=== PATIENT | female | born 1965 | race African-American/Black ===

== ENCOUNTER 2020-11-28 15:40 | Emergency (ER) | payer BC, SELFPAY ==
--- NOTE | ~2020-11-28 | XR_ITS ---
EXAMINATION: XR hip RT 2V w AP pelvis DATE: 11/28/2020 16:11 INDICATION: Fall with right hip pain TECHNIQUE: Anteroposterior view of the pelvis and anteroposterior and frog-leg lateral views of the r ight hip were obtained. COMPARISON: None. FINDINGS: Alignment is normal. No fracture. Bilateral hip joint spaces appear relatively preserved. Small heter otopic ossicle near the cephalad tip of the right greater trochanter. Moderate lower lumbar spondylos is. A few phleboliths in the pelvis. IMPRESSION: 1. No acute osseous abnormality. Reviewed, dictated and finalized at location A.
--- NOTE | ~2020-11-28 | CT_ITS ---
EXAMINATION: CT lumbar spine wo con DATE: 11/28/2020 17:53 INDICATION: Low back pain post fall TECHNIQUE: Computed tomography (CT) of the lumbar spine was performed without intravenous contrast. A utomated exposure control and iterative reconstruction technique were employed. The dose-length produ ct was 1240.63 mGy-cm. COMPARISON: None FINDINGS: Mild lumbar dextrocurvature. Sagittal alignment is normal. Vertebral body heights are normal. No frac tures or pars intra-articular is defects. Severe disc height loss with vacuum phenomena at L3-L4 and L4-L5. Bilateral sacroiliitis, mild on the right and moderate on the left which could be either infla mmatory or degenerative in etiology. 5.8 cm left ovarian cyst. The following disc levels are specific ally discussed: T11-T12: There is mild bilateral facet joint osteoarthritis. There is no neural foraminal stenosis. T here is no central canal stenosis. T12-L1: There is mild right and moderate left facet joint osteoarthritis. There is no neural foramina l stenosis. There is no central canal stenosis. L1-L2: There is mild bilateral facet joint osteoarthritis. There is no neural foraminal stenosis. The re is no central canal stenosis. L2-L3: There is mild left and moderate right facet joint osteoarthritis. There is no neural foraminal stenosis. There is no central canal stenosis. L3-L4: Disc is bulging. There is mild hypertrophy of the ligamentum flavum. There is moderate bilater al facet joint osteoarthritis. There is moderate bilateral neural foraminal stenosis. There is modera te to severe central canal stenosis. L4-L5: Disc is bulging. There is mild hypertrophy of the ligamentum flavum. There is moderate left a nd moderate to severe right facet joint osteoarthritis. There is moderate bilateral neural foraminal stenosis. There is severe central canal stenosis. L5-S1: Disc is bulging. There is moderate to severe bilateral facet joint osteoarthritis. There is mi ld bilateral neural foraminal stenosis. There is mild central canal stenosis. IMPRESSION: 1. Severe lower lumbar spondylosis. No acute osseous abnormality. 2. 5.8 cm left ovarian cyst. Reviewed, dictated and finalized at location A.
--- NOTE | ~2020-11-28 | XR_ITS ---
EXAMINATION: XR foot RT min 3V DATE: 11/28/2020 16:11 INDICATION: Right foot pain post fall TECHNIQUE: Dorsoplantar, two oblique and lateral views of the right foot were obtained. COMPARISON: None. FINDINGS: Hallux valgus. No fracture. Mild polyarticular osteoarthritis at a few tarsal metatarsal and interpha langeal joints. Small Achilles and plantar calcaneal spurs with additional small enthesophyte at the lateral malleolus. IMPRESSION: 1. Mild degenerative skeletal changes in the right foot. No acute osseous abnormality. Reviewed, dictated and finalized at location A. IMPRESSION: 1. Mild degenerative skeletal changes in the right foot. No acute osseous abnor mality.
[2020-11-28 15:42] VITALS: BP 191/93; PULSE 72; RESP 18; TEMP 36.6; O2SAT 100
[2020-11-28] MEDS: HYDROcodone/acetaminophen (*CRX) 5-325 MG TABLET 1 TAB PO (17:46)
--- NOTE | 2020-11-28 18:17 | ED.GENADULT ---
HPI - General Adult General Chief complaint: Extremity Injury, Lower Stated complaint: RIGHT LEG INJURY Time Seen by Provider: 11/28/20 16:57 Source: patient and RN notes reviewed Mode of arrival: ambulatory Limitations: no limitations History of Present Illness HPI narrative: Patient is 54 years old -[place] Citizen female somehow missed a step and fell landed on her bottom on October 17, 2020, was complaining of right foot right ankle pain at that time, repeated x-ray showed no fracture. 5 to 7 days later started having pain at the right buttock going all the way down to her toes with tingling and numbness. patient denies bowel dysfunction, bladder dysfunction, altered sensation, focal weakness, or saddle numbness,. Patient been taking ibuprofen without any improvement. Patient been using a walker/cane since. Related Data Allergies Allergy/AdvReac Type Severity Reaction Status Date / Time No Known Allergies Allergy Verified 11/28/20 16:50 Review of Systems Review of Systems: CONSTITUTIONAL: Denies fever, chills, or sweats. EYES: Denies visual changes, redness, or discharge. ENT: Denies rhinorrhea, congestion, sore throat, or otalgia. CARDIOVASCULAR: Denies chest pain, palpitations, or edema. RESPIRATORY: Denies cough or dyspnea. GASTROINTESTINAL: Denies abdominal pain, nausea, vomiting, or diarrhea. GENITOURINARY: Denies dysuria or hematuria. SKIN: Denies rash or itching. MUSCULOSKELETAL: Right buttock pain NEUROLOGIC: Denies headache, numbness, or weakness. PSYCHIATRIC: Denies anxiety or depression. [facility] Family History Family History Father Family history of malignant neoplasm Mother Family history of coronary artery disease, Onset Age: 56 Sibling Patient's sister is in good health Patient's brother is in good health Patient's brother is Social History Social History Smoking status: Current every day smoker Alcohol intake: current Gender identity (if verbalized by the patient): Female Exam Narrative: General appearance: Well-developed, well-nourished Skin: Normal color Head: Normocephalic, nontraumatic Eyes: Clear conjunctiva ENT: Oropharynx normal, ears normal, nose normal Neck: Supple, nontender Chest and respiratory: Airway patent, no respiratory distress, no accessory muscle use Heart: Regular rate/rhythm Abdomen: Soft, nontender, no organomegaly, quiet bowel sounds Vascular: Normal peripheral pulses, normal capillary refill. Musculoskeletal: Normal range of motion, mild tenderness at the center of her right buttock, no bruises, no swelling. Neurologic: Alert and oriented ?3, [employer] is normal as tested, no gross motor deficit, positive right leg raising test Course Course Emergency Course: Stable, improving Vital Signs Vital signs: Vital Signs Temperature 36.6 C 11/28/20 15:42 Pulse Rate 72 11/28/20 15:42 Respiratory Rate 18 11/28/20 15:42 Blood Pressure 191/93 H 11/28/20 15:42 Pulse Oximetry 100 11/28/20 15:42 Temperature 36.6 C 11/28/20 15:42 Pulse Rate 72 11/28/20 15:42 Respiratory Rate 18 11/28/20 15:42 Blood Pressure 191/93 H 11/28/20 15:42 Pulse Oximetry 100 11/28/20 15:42 Medical Decision Making [facility] Narrative Medical decision making narrative: Lumbar radiculopathy is my concern Differential Diagnosis Differential Diagnosis: Lumbar radiculopathy, musculoskeletal Vital Signs Vital Signs: Vital Signs Temperature 36.6 C 11/28/20 15:42 Pulse Rate 72 11/28/20 15:42 Respiratory Rate 18 11/28/20 15:42 Blood Pressure 191/93 H
[2020-11-28 18:57] VITALS: BP 182/88; PULSE 80; RESP 20; O2SAT 99
== END 2020-11-28 18:58 | disposition home or self-care (01) ==
PROVIDERS: Emergency Provider Emergency Medicine; PCP Internal Medicine
DX: M54.16 Radiculopathy, lumbar region (principal); M79.671 Pain in right foot; M25.571 Pain in right ankle and joints of right foot; F17.200 Nicotine dependence, unspecified, uncomplicated; W10.9XXA Fall (on) (from) unspecified stairs and steps, initial encounter
CPT/HCPCS: 72131; 73502; 73630; 96372; 99284; A9270; J1100

== ENCOUNTER 2022-02-20 15:15 | Outpatient (CLI) | payer BC, SELFPAY ==
[2022-02-20 16:00] LABS: Anion Gap 15 mmol/L (8-16); Blood Urea Nitrogen 12 mg/dL (7-17); Calcium 9.4 mg/dL (8.4-10.2); Carbon Dioxide 29 mmol/L (22-30); Chloride 99 mmol/L (98-107); Estimated Glomerular Filt Rate > 60; Glucose 86 mg/dL (65-110); Potassium 3.1 mmol/L (3.4-5.0); Sodium 143 mmol/L (137-145)
== END 2022-02-20 15:16 | disposition home or self-care (01) ==
LOC: ANHLAB 15:17
PROVIDERS: PCP Internal Medicine; Visit Provider Internal Medicine
DX: I89.0 Lymphedema, not elsewhere classified (principal); I10 Essential (primary) hypertension
CPT/HCPCS: 36415; 80048

== ENCOUNTER 2022-04-14 13:12 | Outpatient (CLI) | payer BC, SELFPAY ==
--- NOTE | 2022-04-18 13:02 | WPDPFTINT ---
PFT Procedure Performed PFT Procedure Performed Spirometry with Pre/Post Bronchodilator Plethysmography (Lung Vol) Diffusing Cap (DLCO) Flow Vol Loop PFT Interpretation Lung volumes were measured with the body plethysmography method. The severely reduced expiratory reserve volume could be due to obesity. The remaining lung volumes are unremarkable. Spirometry showed normal expiratory flow rates and a normal FEV1 to FVC ratio 76%. Following administration of a bronchodilator there was no significant increase in expiratory flow rates. Lung diffusion capacity is moderately reduced at 55% predicted. The flow-volume loop is unremarkable. Impression Impression: Spirometry and lung volumes within the normal range. Moderately reduced lung diffusion capacity.
--- NOTE | 2022-04-18 13:04 | WPDSIXMINUTE ---
Six Minute Walk Procedure Procedure Performed Pulmonary Stress Test (6 min walk) Six Minute Walk Six Minute Walk: This 6-minute walk test was carried out with the patient breathing ambient air. The pre-walk oxyhemoglobin saturation was 99%. The patient walked 335 m with no stops during testing. During the walk the oxyhemoglobin saturation remained in the range of 96%-99%. Impression: No evidence of oxyhemoglobin desaturation on this testing.
== END 2022-04-14 13:13 | disposition home or self-care (01) ==
LOC: ANHPFT 13:13
PROVIDERS: PCP Internal Medicine; Visit Provider Internal Medicine Pulmonary Disease
DX: R06.00 Dyspnea, unspecified (principal); J40 Bronchitis, not specified as acute or chronic; Z72.0 Tobacco use
CPT/HCPCS: 94060; 94618; 94726; 94729

== ENCOUNTER 2022-04-21 11:37 | Outpatient (CLI) | payer BC, SELFPAY ==
[2022-04-21 12:09] LABS: Alanine Aminotransferase 26 U/L (6-35); Albumin Level 4.6 g/dL (3.5-5.1); Alkaline Phosphatase 147 U/L (38-126); Anion Gap 7 mmol/L (8-16); Aspartate Amino Transferase 30 U/L (14-36); Bilirubin,Total 0.8 mg/dL (0.2-1.3); Blood Urea Nitrogen 23 mg/dL (7-17); Calcium 9.6 mg/dL (8.4-10.2); Carbon Dioxide 27 mmol/L (22-30); Chloride 105 mmol/L (98-107); Cholesterol 195 mg/dL (0-200); Estimated Glomerular Filt Rate > 60; Glucose 93 mg/dL (65-110); HDL Direct 61 mg/dL; Potassium 3.9 mmol/L (3.4-5.0); Sodium 139 mmol/L (137-145); Triglycerides 115 mg/dL (<150)
[2022-04-21 12:20] LABS: LDL Cholesterol Direct 66 mg/dL
[2022-04-21 13:09] LABS: Vitamin D 25 Hydroxy 26.4 ng/mL
== END 2022-04-21 11:38 | disposition home or self-care (01) ==
LOC: ANHLAB 11:39
PROVIDERS: PCP Internal Medicine; Visit Provider Nurse Practitioner
DX: E78.5 Hyperlipidemia, unspecified (principal); E55.9 Vitamin D deficiency, unspecified
CPT/HCPCS: 36415; 80053; 80061; 82306

== ENCOUNTER 2022-07-11 12:59 | Outpatient (CLI) | payer BC, SELFPAY ==
--- NOTE | 2022-07-11 | ECHO_ITS ---
Patient Info Name: Selam Rosario Age: 56 years : 1965 Gender: Female Ht: 65 in Wt: 175 lbs BSA: 1.93 m2 HR: 78 bpm BP: 135 / 85 mmHg Heart Rhythm: Sinus Rhythm Technical Quality: Good Exam Date: 07/11/2022 1:10 PM Exam Location: [facility] Patient Status: Outpatient Admit Date: 07/11/2022 Staff Ordering Physician: Yoandy Machuca MD Manufacturing Controller: Tiffanie Tapia RDCS Attending Provider: Yoandy Machuca MD Referring Physician: Sven LERNER; Exam Type: CA echo doppler color flow Study Info Indications I27.20 - PULMONARY HYPERTENSION I36.1 - Nonrheumatic tricuspid (valve) insufficiency I35.1 - Nonrheumatic aortic (valve) insufficiency I34.0 - Nonrheumatic mitral (valve) insufficiency I10 - Essential (primary) hypertension Complete two-dimensional, color flow and Doppler transthoracic echocardiogram is performed. Summary 1. Complete two-dimensional, color flow and Doppler transthoracic echocardiogram is performed. 2. Left atrial chamber dimension is moderately enlarged. 3. Right atrial chamber dimension is mildly enlarged. 4. Normal left ventricular size and thickness with good contractility of all segments. Ejection fraction 60-65%. Grade 2 diastolic dysfunction is noted. 5. There is moderate eccentric aortic valve regurgitation. Trileaflet valve. 6. There is mild tricuspid valve regurgitation. 7. Mild pulmonary hypertension, estimated pulmonary arterial systolic pressure is 46 mmHg. 8. There is trivial pericardial effusion. 9. Mildly dilated inferior vena cava. 10. Minimally dilated sinus of Valsalva and ascending aorta, 3.3 cm. 11. Normal sinus rhythm. Left Ventricle Left ventricular chamber dimension is normal. Left ventricular systolic function is normal, estimated at 60-65%. There is no increased left ventricular wall thickness. Left ventricular septal wall motion is normal. The left ventricular diastolic function is grade II diastolic dysfunction. Global longitudinal strain is normal at -18 %. Right Ventricle Right ventricular chamber dimension is normal. Right ventricular systolic function is normal. Left Atria Left atrial chamber dimension is moderately enlarged. Right Atria Right atrial chamber dimension is mildly enlarged. Aortic Valve The aortic valve is trileaflet. There is no aortic valve sclerosis. There is no aortic valve stenosis. There is moderate eccentric aortic valve regurgitation. Trileaflet valve. Pulmonic Valve The pulmonic valve is normal. There is no pulmonic valve stenosis. There is no pulmonic regurgitation. Mitral Valve The mitral valve has thickened leaflets. There is no mitral valve stenosis. There is trace mitral valve regurgitation. Tricuspid Valve The tricuspid valve leaflets are normal. There is no significant tricuspid valve stenosis. There is mild tricuspid valve regurgitation. Mild pulmonary hypertension, estimated pulmonary arterial systolic pressure is 46 mmHg. Pericardium/Pleural The pericardium appears normal. There is trivial pericardial effusion. Aorta The aortic root size at the sinus of Valsalva is borderline dilated. The prox ascending aorta size is normal. Left Ventricular Outflow Tract Name Value Normal LVOT 2D
== END 2022-07-11 13:00 | disposition home or self-care (01) ==
PROVIDERS: PCP Internal Medicine; Visit Provider Internal Medicine Cardiovascular Disease
DX: I27.20 Pulmonary hypertension, unspecified (principal); I34.0 Nonrheumatic mitral (valve) insufficiency; I36.1 Nonrheumatic tricuspid (valve) insufficiency; I35.1 Nonrheumatic aortic (valve) insufficiency; I10 Essential (primary) hypertension; G47.33 Obstructive sleep apnea (adult) (pediatric); Z99.89 Dependence on other enabling machines and devices
CPT/HCPCS: 93306